=== PATIENT | male | born 1990 | race African-American/Black ===

== ENCOUNTER 2022-09-10 02:38 | Emergency (ER) | payer OTHER, SELFPAY ==
[2022-09-10] MEDS ORDERED: Ketorolac Tromethamine 30 MG/ML VIAL ONE (02:54)
[2022-09-10] MEDS ORDERED: Morphine 4 MG/ML VIAL ONE (02:54)
[2022-09-10 03:19] LABS: #Eosinphils 0.1 thou/uL (0.0-0.7); #Lymphocytes 1.5 thou/uL (1.20-3.40); #Monocytes 0.7 thou/uL (0.11-0.59); %Basophils 0.5 % (0.0-1.0); %Lymphocytes 18.1 % (21.0-51.0); %Monocytes 7.9 % (0.0-10.0); %Neutrophils 72.5 % (42.0-75.0); Hemoglobin 12.7 g/dL (14.0-18.0); Mean Corpuscular HGB CONC 31.8 g/dL (32.0-36.0); Mean Corpuscular Hemoglobin 24.8 pg (27.0-31.0); Mean Corpuscular Volume 77.8 fl (78.0-98.0); Mean Platelet Volume 9.9 fL (7.4-10.4); Platelet Count 157 10x3/uL (130-400); RBC Distribution Width 12.6 % (11.5-14.5); Red Blood Cell (RBC) Count 5.14 mill/uL (4.70-6.10); White Blood Cell (WBC) Count 8.2 10x3/uL (4.8-10.8)
[2022-09-10 03:41] LABS: ALT (SGPT) 33 U/L (8-55); AST (SGOT) 30 U/L (5-34); Acetaminophen Less than 10.0 mcg/mL (10.0-30.0); Albumin 4.5 g/dL (3.5-5.0); Alcohol Less than 10 mg/dL (Less than 10); Alkaline Phosphatase 55 U/L (40-110); Anion Gap 16 mmol/L (10-20); BUN (Urea Nitrogen) 17 mg/dL (8.9-20.6); Bilirubin, Total 0.4 mg/dL (0.2-1.2); Calc. Creatinine Clearance 0 mL/min (70-130); Calcium 9.6 mg/dL (7.8-10.44); Carbon Dioxide 19 mmol/L (22-29); Chloride 104 mmol/L (98-107); Estimated GFR 79; Globulin 3.3 g/dL (2.4-3.5); Glucose 96 mg/dL (70-105); Magnesium 2.4 mg/dL (1.6-2.6); Potassium 3.9 mmol/L (3.5-5.1); Protein, Total 7.8 g/dL (6.0-8.3); Salicylate Less than 8.0 mg/dL (15.0-30.0); Sodium 135 mmol/L (136-145)
[2022-09-10] MEDS ORDERED: Iopamidol-370 76% 500 ML 1 ML ONE (11:26)
== END 2022-09-10 06:08 ==
LOC: ERS 02:38
DX: S06.0X0A Concussion without loss of consciousness, initial encounter (principal); V46.1XXA Car passenger injured in collision with other nonmotor vehicle in nontraffic accident, initial encounter
CPT/HCPCS: 70450; 71045; 72125; 74177; 80053; 80307; 83735; 85025; 96374; 96375; G0390; J1885; J2270; Q9967